=== PATIENT | male | born 1950 | race Caucasian/White ===

== ENCOUNTER → 2017-10-14 | Outpatient (CLI) | payer OTHER | END | disposition home or self-care (01) | LOC: SONOGRAMA 09:28 | DX: M12.811 Other specific arthropathies, not elsewhere classified, right shoulder (principal); M19.011 Primary osteoarthritis, right shoulder ==

== ENCOUNTER → 2017-12-22 | Outpatient (CLI) | payer OTHER | END | disposition home or self-care (01) | LOC: LAB 07:12 → EDBD 07:12 → LAB 07:31 | DX: I10 Essential (primary) hypertension (principal) ==

== ENCOUNTER → 2017-12-31 | Day surgery (SDC) | payer OTHER | END | disposition home or self-care (01) | LOC: ADM 12-25 08:00 → EDBD 12-25 08:00 → CIR.AMB 07:13 | DX: M75.121 Complete rotator cuff tear or rupture of right shoulder, not specified as traumatic (principal); M24.111 Other articular cartilage disorders, right shoulder ==

== ENCOUNTER 2018-10-26 11:19 | Outpatient (CLI) | payer OTHER | END 2018-10-26 11:25 | disposition home or self-care (01) | LOC: RAD 11:19 | DX: R10.9 Unspecified abdominal pain (principal) ==

== ENCOUNTER 2019-03-14 07:18 | Outpatient (CLI) | payer OTHER | END 2019-03-14 07:22 | disposition home or self-care (01) | LOC: TOM 07:18 | DX: K40.90 Unilateral inguinal hernia, without obstruction or gangrene, not specified as recurrent (principal); N20.0 Calculus of kidney ==

== ENCOUNTER 2020-12-06 05:00 | Day surgery (SDC) | payer OTHER ==
[~2020-12-06 05:00] MED LIST: LIPITOR20 MG PO
== END 2020-12-06 11:05 | disposition home or self-care (01) ==
LOC: CIR.AMB 05:00
PROVIDERS: ATTEND Orthopaedic Surgery
DX: M75.122 Complete rotator cuff tear or rupture of left shoulder, not specified as traumatic (principal); Z20.822 Contact with and (suspected) exposure to COVID-19